=== PATIENT | female | born 1980 | race Caucasian/White ===

== ENCOUNTER 2016-09-25 17:45 | Emergency (ER) | payer SELFPAY ==
--- NOTE | ~2016-09-25 | CT71 ---
[facility] A Service [facility] RADIOLOGY TEXT RESULTS PATIENT: JINA ROSE LOCATION: SED : 82 UNIT #: [id number] AGE: [address]: Sylwia Longo MD SEX: F ORDER DR: [id number] [address] [address] [id number] MR#: [id number] Acc #: [id number] NAME: JINA ROSE : 1980 SEX: F STUDY DATE/TIME: 09/25/2016 18:57 UNIT: SED ROOM: STUDY DESCRIPTION: CT Head Wo Contrast Attending Physician: Sylwia Longo M.D. Ordering Physician: Sylwia Longo M.D. Primary Care Physician: No Primary Care Physician MEDICAL IMAGING REPORT This report is preliminary unless electronic signature is present. EXAM CT head. INDICATIONS Seizures. Head and neck pain. Found down. TECHNIQUE CT head without contrast. This CT exam was performed with one or more of the following radiation dose reduction techniques: automatic exposure control, adjustment of mA and/or kV according to patient size, and iterative reconstruction. COMPARISON None available. FINDINGS There is no acute intracranial hemorrhage, mass lesion, or acute infarct. Gonzalez-white matter differentiation is normal. The ventricles and basilar cisterns are normal. No extraaxial collections. No acute osseous abnormalities. The visualized paranasal sinuses and mastoid air cells are clear. IMPRESSION 1. No acute intracranial findings. Dictated by... Fernando Barrera M.D. THIS IS AN ELECTRONICALLY VERIFIED REPORT Fernando Barrera M.D. at 09/26/2016 10:50 AM RPC/pc [facility] A Service [facility] RADIOLOGY TEXT RESULTS PATIENT: JINA ROSE LOCATION: SED : 82 UNIT #: [id number] AGE: [address]: Sylwia Longo MD SEX: F ORDER DR: TD: 09/26/2016 09:07 JOB #: [id number] MEDICAL IMAGING REPORT Page 1 of 1
== END 2016-09-25 21:02 | disposition home or self-care (01) ==
LOC: SED 17:45
DX: S09.90XA Unspecified injury of head, initial encounter (principal); G40.409 Other generalized epilepsy and epileptic syndromes, not intractable, without status epilepticus
CPT/HCPCS: 70450; 99284